=== PATIENT | male | born 1990 | race Caucasian/White ===

== ENCOUNTER 2017-02-04 12:36 | Emergency (ER) | payer SELFPAY ==
[~2017-02-04] VITALS: Ht 172.7 cm; Wt 78.3 kg
[2017-02-04 12:43] VITALS: BP 132/73
== END 2017-02-04 13:49 | disposition home or self-care (01) ==
LOC: ED 13:00
DX: L04.0 Acute lymphadenitis of face, head and neck (principal)
CPT/HCPCS: 99283